=== PATIENT | male | born 2000 | race Two or more races ===

== ENCOUNTER 2020-01-03 21:41 | Emergency (ER) | payer SELFPAY ==
[~2020-01-03] VITALS: Ht 154.9 cm; Wt 68.3 kg
[2020-01-03 21:44] VITALS: BP 118/71
[2020-01-03] MEDS ORDERED: LIDOCAINE-MPF 1%, 5ML INFIL ONE (22:00)
--- NOTE | 2020-01-03 22:03 | NUR ---
PT TAKEN FOR CT.
[2020-01-03] MEDS ORDERED: LIDOCAINE-MPF 1%, 5ML ONE (22:07)
[2020-01-03] MEDS ORDERED: NEOSPORIN OINT. PKT 1 PACKET ONE ×2 (23:00→23:51)
--- NOTE | 2020-01-03 23:00 | NUR ---
REPORT GIVEN TO YOSI DAVID.
--- NOTE | 2020-01-03 23:08 | NUR ---
This RN irrigated lacerationon head and cheek bite puncture site on left side with 1000mls of sterile saline. Wound ready for repair.
--- NOTE | 2020-01-03 23:13 | NUR ---
[employer] page for patient
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
--- NOTE | 2020-01-03 23:35 | NUR ---
LAC repaired with quique.
--- NOTE | 2020-01-03 23:48 | NUR ---
Report to Melani DAVID
--- NOTE | 2020-01-03 23:48 | NUR ---
Report received from FRANKIE Russell. This RN to assume care.
--- NOTE | 2020-01-04 00:41 | NUR ---
[employer] in room.
== END 2020-01-04 01:43 ==
LOC: ED 01-04 01:37
DX: S06.0X0A Concussion without loss of consciousness, initial encounter (principal); S00.87XA Other superficial bite of other part of head, initial encounter; S00.81XA Abrasion of other part of head, initial encounter; W22.8XXA Striking against or struck by other objects, initial encounter; Y93.89 Activity, other specified; Y92.098 Other place in other non-institutional residence as the place of occurrence of the external cause; Y99.8 Other external cause status
CPT/HCPCS: 12032; 70450; 70486; 72125; 99285

== ENCOUNTER 2020-01-10 20:06 | Emergency (ER) | payer SELFPAY ==
[~2020-01-10] VITALS: Ht 154.9 cm; Wt 71.1 kg
[2020-01-10 20:12] VITALS: BP 133/77
--- NOTE | 2020-01-10 20:47 | NUR ---
Pt here for quique removed from head laceration. Wound edges have healed and approximated well. KELSEY. Pt reports he has no concerns and has had no fevers at home.
--- NOTE | 2020-01-10 20:48 | NUR ---
Patient/Caregiver given discharge instructions and they have confirmed that they understand the instructions. Patient ambulatory with steady gait.
== END 2020-01-10 20:50 | disposition home or self-care (01) ==
LOC: ED 20:43
DX: S01.01XD Laceration without foreign body of scalp, subsequent encounter (principal); X58.XXXD Exposure to other specified factors, subsequent encounter
CPT/HCPCS: 99282

== ENCOUNTER 2020-01-19 18:52 | Emergency (ER) | payer OTHER ==
[~2020-01-19] VITALS: Ht 152.4 cm; Wt 71.5 kg
[2020-01-19 18:58] VITALS: BP 123/83
[2020-01-19] MEDS ORDERED: DIPH,PERTUSS(ACELL),TET VAC/PF 0.5 ML IM-VACC ONE ×2 (19:30→19:35)
[2020-01-19] MEDS ORDERED: LIDOCAINE-MPF 1%, 5ML INFIL ONE (19:30)
[2020-01-19] MEDS ORDERED: LIDOCAINE-MPF 1%, 5ML ONE (19:35)
== END 2020-01-19 20:11 | disposition home or self-care (01) ==
LOC: ED 19:52
DX: S61.411A Laceration without foreign body of right hand, initial encounter (principal); X58.XXXA Exposure to other specified factors, initial encounter; Y93.89 Activity, other specified; Y92.098 Other place in other non-institutional residence as the place of occurrence of the external cause; Y99.8 Other external cause status
CPT/HCPCS: 12041; 90471; 90715; 99284